=== PATIENT | male | born 1950 | race Two or more races ===

== ENCOUNTER 2020-07-30 04:12 | Inpatient (IN) | payer MEDICARE, MEDICAID ==
[~2020-07-30] VITALS: Ht 172.7 cm; Wt 95.0 kg
[~2020-07-30 04:12] MED LIST: APIX5TAB OR; APIX5TAB PO; ASPI-498 OR; GABA300C10 PO; GLIP10TA9 PO; HYDR25TA4 PO; LOSA-69 PO; NIFE1TAB31 PO; SITA100T7 PO
[2020-07-30 05:27] LABS: Basophils # (auto) 0.1 10 ^3/uL (0-0.2); Basophils % (auto) 0.9 % (0.0-2.0); Eosinophils # (auto) 0.7 10 ^3/uL (0-0.8); Eosinophils % (auto) 6.8 % (0.0-7.0); Hematocrit 40.3 % (41.0-53.0); Hemoglobin 13.2 g/dL (13.5-17.5); Lymphocytes # (auto) 3.3 10 ^3/uL (0.4-5.4); Lymphocytes % (auto) 32.4 % (10.0-50.0); Mean Corpuscular Hgb Conc. 32.8 g/dL (32.0-36.0); Mean Corpuscular Volume 91.4 fL (80.0-100.0); Monocytes % (auto) 9.7 % (0.0-12.0); Neutrophils # (auto) 5.2 10 ^3/uL (1.6-8.6); Neutrophils % (auto) 50.2 % (37.0-80.0); Nucleated Red Blood Cells % 0.1 %; Platelet Count (auto) 222 10^3/uL (140-450); Red Blood Cells 4.41 10^6/uL (4.5-5.90); Red Cell Distribution Width 15.1 % (11.8-14.3); White Blood Cell 10.3 10^3/uL (4.4-10.8)
[2020-07-30 05:45] LABS: INR 0.92 (0.9-1.15); Partial Thromboplastin Time 25.1 sec (23.0-31.2)
[2020-07-30 05:48] LABS: Albumin 3.6 g/dL (3.4-5.0); Anion Gap 4 (5-15); Blood Urea Nitrogen 24 mg/dL (7-18); Calcium 9.1 mg/dL (8.5-10.1); Carbon Dioxide 26 mmol/L (21-32); Chloride 107 mmol/L (98-107); Glucose 201 mg/dL (74-106); Potassium 3.8 mmol/L (3.5-5.1); Sodium 137 mmol/L (136-145)
[2020-07-30 05:58] LABS: Alanine Aminotransferase 26 U/L (16-61); Alkaline Phosphatase 157 U/L (45-117); Aspartate Aminotransferase 21 U/L (15-37); BUN/Creatinine Ratio 18.9; Bilirubin, Total 0.4 mg/dL (0.2-1.0); GFR African American 73 mL/min; GFR Non-African American 60 mL/min; Total Protein 7.9 g/dL (6.4-8.2)
[2020-07-30 10:10] LABS: Urine Bacteria FEW /hpf (None Seen); Urine Blood Negative /uL (Negative); Urine WBC 41 /hpf (0 - 3)
[2020-07-30] MEDS ORDERED: ACETAMINOPHEN 325 MG TAB PO PRN (10:30)
[2020-07-30 13:00] VITALS: BP 148/98
--- NOTE | 2020-07-30 13:00 | NUR ---
Telemetry admit from ER LETTYCARLOS admitted to Telemetry unit after SBAR received. Patient oriented to Sherice posadas RN, unit, room, bed, and unit policies regarding patient care and visiting hours. Patient now on continuous telemetry monitoring, tele box # 75 and telemetry reading on arrival to unit is 85. Patient is on room air, weighed by bedscale and encouraged to call if they need something. All questions and concerns addressed with meat dresser (RN), patient verbalized understanding.
--- NOTE | 2020-07-30 14:30 | NUR ---
Spoke to patient and daughter, Marilyn regarding patient's home medication. Per daughter, he gave list of medication in ER. However, no list of medication when admitted to unit. Patient and family unable to confirm home medications at this time.
[2020-07-30 17:00] VITALS: BP 147/86
--- NOTE | 2020-07-30 17:12 | NUR ---
gave tylenol for 5/10 headache. will continue to monitor for changes.
--- NOTE | 2020-07-30 17:40 | NUR ---
assessed blood glucose, no coverage required for 105mg/dL
[2020-07-30] MEDS: GABAPENTIN 300 MG CAP PO SCH ×2 (18:06→21:54)
--- NOTE | 2020-07-30 19:20 | NUR ---
RECEIVED PATIENT FROM DAY SHIFT RN. PATIENT RESTING IN BED. NO S/S OF DISTRESS NOTED. STATED HEADACHE IS BETTER NOW AFTER PAIN MEDICATION GIVEN EARLIER. REINFORCED SCHEDULE OF PAIN MANAGEMENT. WILL COME BACK FOR PAIN MEDICATION LATER WHEN THE TIME IS DUE AND PER PATIENT REQUESTS. LEFT EYE LIP DROPPING NOTED, WELL LEFT SIDE OF BODY WEAKNESS. POC INSTRUCTED AND ENCOURAGED PATIENT TO CALL FOR DEPARTMENT CLINICIAN IF NEEDED. BED IN LOWEST POSITION WITH SIDE RAILS UP X 2. CALL [facility] WITHIN REACH. ALARM ON. CONTINUE TO MONITOR FOR CHANGES Q1H AND PRN.
[2020-07-30] MEDS ORDERED: DEXTROSE (50%) 50ML SYRG IV PRN (19:45)
[2020-07-30] MEDS ORDERED: LORazepam 2MG/ML-1ML VIAL IV PRN (21:45)
[2020-07-30] MEDS: LOSARTAN POTASSIUM 50 MG TAB PO SCH (21:53)
[2020-07-30] MEDS: HCTZ 25 MG TAB PO SCH (21:53)
[2020-07-30] MEDS: ATORVASTATIN 20 MG TAB PO SCH (21:54)
[2020-07-30] MEDS: ACCU-CHEK COMFORT CURVE STRIP VI SCH (21:54)
[2020-07-30] MEDS: InsuLIN REG 1unit/0.01ml Soln (100units/ml) SC SCH (21:54)
[2020-07-30 22:00] VITALS: BP 154/84
[2020-07-30] MEDS ORDERED: APIXABAN 5 MG TAB PO SCH ×2 (22:00)
--- NOTE | 2020-07-30 22:00 | NUR ---
ORAL MEDICATIONS GIVEN ORDERED. PATIENT SWALLOWED WELL. NO S/S OF ASPIRATION NOTED. ACCU-CHECK, BS 127. NO COVERAGE. CONTINUE TO MONITOR.
--- NOTE | 2020-07-30 23:10 | NUR ---
PATIENT ON CPAP NOW. CONTINUE TO MONITOR.
[2020-07-31 02:54] VITALS: BP 154/84
--- NOTE | 2020-07-31 03:23 | NUR ---
PATIENT SLEEPING WITH CPAP ON, O2 SAT 95%. NO S/S OF DISTRESS NOTED. CONTINUE TO MONITOR.
[2020-07-31 05:00] VITALS: BP 157/69
[2020-07-31] MEDS: ACCU-CHEK COMFORT CURVE STRIP VI SCH ×4 (06:25→22:00)
[2020-07-31] MEDS: GABAPENTIN 300 MG CAP PO SCH ×4 (06:25→22:00)
[2020-07-31] MEDS: InsuLIN REG 1unit/0.01ml Soln (100units/ml) SC SCH ×4 (06:28→22:01)
--- NOTE | 2020-07-31 06:35 | NUR ---
ACCU-CHECK, BS 134. INSULIN GIVEN ORDERED. CONTINUE TO MONITOR.
[2020-07-31 07:44] LABS: Cholesterol 121 mg/dL (< 200)
[2020-07-31 07:47] LABS: HDL Cholesterol 42 mg/dL (40-59); LDL Cholesterol 67 mg/dL (< 100); Triglycerides 108 mg/dL (< 150)
[2020-07-31 09:00] VITALS: BP 137/80
[2020-07-31] MEDS ORDERED: ASPirin 81 mg TAB PO SCH (10:00)
[2020-07-31] MEDS: HCTZ 25 MG TAB PO SCH ×2 (10:15→22:04)
[2020-07-31] MEDS: ASPirin-EC 81 mg tab PO SCH (10:16)
[2020-07-31] MEDS: LOSARTAN POTASSIUM 50 MG TAB PO SCH ×2 (10:16→22:00)
[2020-07-31] MEDS: NIFEdipine ER 30 MG TAB PO SCH (10:17)
--- NOTE | 2020-07-31 11:00 | NUR ---
PT RECEIVING TEST. ATTEMPT P.T.LATER.
[2020-07-31 13:00] VITALS: BP 131/82
[2020-07-31 17:00] VITALS: BP 137/90
[2020-07-31 22:00] VITALS: BP 143/95
[2020-07-31] MEDS: ATORVASTATIN 20 MG TAB PO SCH (22:00)
[2020-08-01 04:41] VITALS: BP 144/87
[2020-08-01] MEDS: ACCU-CHEK COMFORT CURVE STRIP VI SCH ×2 (06:20→12:25)
[2020-08-01] MEDS: GABAPENTIN 300 MG CAP PO SCH ×2 (06:20→12:24)
[2020-08-01] MEDS: InsuLIN REG 1unit/0.01ml Soln (100units/ml) SC SCH ×2 (06:25→12:32)
--- NOTE | 2020-08-01 06:52 | NUR ---
Respiratory note: PATIENT FOUND OFF CPAP AND ON ROOM AIR WITH SPO2 AT 97%. UNKNOWN WHAT TIME PATIENT WAS TAKEN OFF CPAP.
[2020-08-01 08:00] VITALS: BP 154/84
--- NOTE | 2020-08-01 08:00 | NUR ---
Patient resting comfortably in bed; talking on phone. Patient stable at this time.
[2020-08-01 08:38] VITALS: BP_SYST 143; BP_SYST 154; BP_DIAS 84; BP_DIAS 95
[2020-08-01 09:00] VITALS: BP 130/83
[2020-08-01] MEDS: ASPirin-EC 81 mg tab PO SCH (09:41)
[2020-08-01] MEDS: NIFEdipine ER 30 MG TAB PO SCH (09:41)
[2020-08-01] MEDS: HCTZ 25 MG TAB PO SCH (09:42)
[2020-08-01] MEDS: LOSARTAN POTASSIUM 50 MG TAB PO SCH (09:42)
--- NOTE | 2020-08-01 09:43 | NUR ---
Scheduled medications given per order. Patient resting comfortably in bed; denies any pain. Patient stable.
--- NOTE | 2020-08-01 09:55 | NUR ---
Patient ambulating in room with walker and PT assist.
--- NOTE | 2020-08-01 12:25 | NUR ---
Checked blood sugar: 239 mg/dl - will cover per sliding scale. Scheduled po medication given as well. Patient resting comfortably in bed with no distress noted. Patient stable. Addendum: 08/01/20 at 1234 by OMI AYALA RN RN Covered per sliding scale.
[2020-08-01 13:00] VITALS: BP 146/109
--- NOTE | 2020-08-01 13:10 | NUR ---
Patient assisted to bathroom and back to bed. Patient stable.
--- NOTE | 2020-08-01 13:50 | NUR ---
Patient stable with tech at bedside to start EEG.
--- NOTE | 2020-08-01 15:20 | NUR ---
Patient resting comfortably in bed with no respiratory distress noted. Patient stable.
--- NOTE | 2020-08-01 15:32 | NUR ---
assessment Patient is a 69 year old male who is not answering his phone. Per patients daughter Awilda prior to admission patient lived home with her and family and needed assistance. Patient has a fww for home use. Patients PCP is Dr yS. Awilda is patients [facility] caregiver. I informed Awilda of patients ss consult for home health PT. Per Awilda she has no preference on who provides service. MD order has been sent to [facility]. Per Jayden service will start within 48 hours. Awilda has been notified. awilda verbalized understanding and agreed to discharge plan home. Addendum: 08/01/20 at 1542 by Kendal VELASQUEZ Amended: Links added.
--- NOTE | 2020-08-01 16:35 | NUR ---
Discharge instructions Both written and verbal discharge instructions given to patient. Patient verbalized understanding of instructions. All belongings with patient. Patient sitting on side of bed; stable.
[2020-08-01 17:00] VITALS: BP 124/88
--- NOTE | 2020-08-01 17:30 | NUR ---
Discharge Peripheral IV removed intact with no active bleeding; site covered with gauze. Patient discharge to home in stable condition. Home Health visit should be within 48 hours.
== END 2020-08-01 17:30 | disposition home health service (06) | DRG 45 ==
LOC: ER 04:12 → TELE 04:13 → TELE-WESTW 13:00
PROVIDERS: ADMIT Psychiatry & Neurology Neurology; ATTEND Psychiatry & Neurology Neurology
DX: I63.9 Cerebral infarction, unspecified (principal); R56.9 Unspecified convulsions; I10 Essential (primary) hypertension; H51.0 Palsy (spasm) of conjugate gaze; G47.30 Sleep apnea, unspecified; K21.9 Gastro-esophageal reflux disease without esophagitis; I25.10 Atherosclerotic heart disease of native coronary artery without angina pectoris; B19.20 Unspecified viral hepatitis C without hepatic coma; G81.94 Hemiplegia, unspecified affecting left nondominant side; E11.40 Type 2 diabetes mellitus with diabetic neuropathy, unspecified; J32.4 Chronic pansinusitis; Z79.01 Long term (current) use of anticoagulants; Z87.891 Personal history of nicotine dependence; Z95.5 Presence of coronary angioplasty implant and graft; Z79.02 Long term (current) use of antithrombotics/antiplatelets; Z79.82 Long term (current) use of aspirin; Z79.84 Long term (current) use of oral hypoglycemic drugs; Z79.899 Other long term (current) drug therapy; Z82.49 Family history of ischemic heart disease and other diseases of the circulatory system; Z83.3 Family history of diabetes mellitus
CPT/HCPCS: 36415; 70450; 70551; 71045; 80053; 80061; 81001; 82962; 83880; 84484; 85025; 85610; 85730; 93005; 93306; 93886; 94660; 95819; G0378; J1815

== ENCOUNTER 2022-06-09 07:49 | Inpatient (IN) | payer MEDICARE, MEDICAID ==
[~2022-06-09] VITALS: Ht 167.6 cm; Wt 98.9 kg
[2022-06-09] MEDS ORDERED: ASPirin 81 mg TAB PO ONE (08:00)
[2022-06-09 08:22] LABS: Basophils # (auto) 0.1 10 ^3/uL (0-0.2); Basophils % (auto) 0.9 % (0.0-2.0); Eosinophils # (auto) 1.2 10 ^3/uL (0-0.8); Eosinophils % (auto) 12.2 % (0.0-7.0); Hemoglobin 12.6 g/dL (13.5-17.5); Lymphocytes # (auto) 2.6 10 ^3/uL (0.4-5.4); Lymphocytes % (auto) 25.7 % (10.0-50.0); Mean Corpuscular Hemoglobin 30.1 pg (28.0-32.0); Mean Corpuscular Hgb Conc. 33.2 g/dL (32.0-36.0); Mean Corpuscular Volume 90.4 fL (80.0-100.0); Monocytes # (auto) 0.8 10 ^3/uL (0-1.3); Monocytes % (auto) 8.2 % (0.0-12.0); Neutrophils # (auto) 5.4 10 ^3/uL (1.6-8.6); Nucleated Red Blood Cells % 0.1 %; Red Cell Distribution Width 14.2 % (11.8-14.3); White Blood Cell 10.2 10^3/uL (4.4-10.8)
[2022-06-09 08:29] LABS: Albumin 3.5 g/dL (3.4-5.0); Calcium 8.6 mg/dL (8.5-10.1); Potassium 3.8 mmol/L (3.5-5.1)
[2022-06-09 08:32] LABS: BUN/Creatinine Ratio 16.2; Bilirubin, Total 0.4 mg/dL (0.2-1.0); Total Protein 7.4 g/dL (6.4-8.2)
[2022-06-09] MEDS ORDERED: MORPHINE SULFATE INJ 2 MG/ml SYRG IV PRN ×2 (11:45→13:15)
[2022-06-09] MEDS ORDERED: DEXTROSE (50%) 50ML SYRG IV PRN (11:45)
[2022-06-09] MEDS ORDERED: NITROGLYCERIN 0.4 MG SL TAB SL PRN (11:45)
[2022-06-09] MEDS: SODIUM CHLORIDE 0.9% 1,000 ML IV SCH (12:06)
[2022-06-09 12:52] LABS: Cholesterol 104 mg/dL (< 200); HDL Cholesterol 39 mg/dL (40-59); LDL Cholesterol 52 mg/dL (< 100); Triglycerides 147 mg/dL (< 150)
[2022-06-09] MEDS ORDERED: KETOROLAC TROMETH 30 MG/ML 1ML VIAL IV PRN (13:15)
[2022-06-09] MEDS: InsuLIN REG 1unit/0.01ml Soln (100units/ml) SC SCH ×2 (17:00→22:12)
[2022-06-09] MEDS: ACCU-CHEK COMFORT CURVE STRIP VI SCH ×2 (18:16→22:09)
[2022-06-09 19:06] VITALS: BP 134/73
[2022-06-09] MEDS ORDERED: OMEP20TA PO (19:58)
[2022-06-09] MEDS ORDERED: FINA5TAB4 PO (19:58)
[2022-06-09] MEDS ORDERED: TICA90TA PO (19:58)
[2022-06-09] MEDS ORDERED: FERR325T20 PO (19:58)
[2022-06-09] MEDS ORDERED: TAMS0.4C36 PO (19:58)
[2022-06-09] MEDS ORDERED: ATOR20TA PO (19:58)
[2022-06-09] MEDS ORDERED: CANA300T OR (19:58)
[2022-06-09] MEDS ORDERED: FINE10TA PO (19:58)
[2022-06-09] MEDS ORDERED: METO-158 PO (19:58)
[2022-06-09 22:00] VITALS: BP 134/73
[2022-06-09 22:28] LABS: Urine Bacteria NONE SEEN /hpf (None Seen); Urine Blood Negative /uL (Negative); Urine Specific Gravity 1.016 (1.001-1.035); Urine WBC <1 /hpf (0 - 3)
[2022-06-10] MEDS: SODIUM CHLORIDE 0.9% 1,000 ML IV SCH (04:25)
[2022-06-10 04:59] LABS: Basophils # (auto) 0.1 10 ^3/uL (0-0.2); Basophils % (auto) 0.6 % (0.0-2.0); Eosinophils # (auto) 1.1 10 ^3/uL (0-0.8); Eosinophils % (auto) 10.3 % (0.0-7.0); Hematocrit 38.6 % (41.0-53.0); Hemoglobin 12.7 g/dL (13.5-17.5); Lymphocytes # (auto) 2.5 10 ^3/uL (0.4-5.4); Lymphocytes % (auto) 22.5 % (10.0-50.0); Mean Corpuscular Hemoglobin 29.9 pg (28.0-32.0); Mean Corpuscular Volume 90.6 fL (80.0-100.0); Monocytes % (auto) 9.2 % (0.0-12.0); Neutrophils # (auto) 6.3 10 ^3/uL (1.6-8.6); Neutrophils % (auto) 57.4 % (37.0-80.0); Nucleated Red Blood Cells % 0.1 %; Red Blood Cells 4.25 10^6/uL (4.5-5.90); Red Cell Distribution Width 14.2 % (11.8-14.3)
[2022-06-10 05:00] VITALS: BP 143/72
[2022-06-10 05:17] LABS: Albumin 3.4 g/dL (3.4-5.0); BUN/Creatinine Ratio 17.3; Calcium 8.7 mg/dL (8.5-10.1); Potassium 3.9 mmol/L (3.5-5.1)
[2022-06-10 05:20] LABS: Bilirubin, Total 0.4 mg/dL (0.2-1.0); Total Protein 7.2 g/dL (6.4-8.2)
[2022-06-10] MEDS: ACCU-CHEK COMFORT CURVE STRIP VI SCH ×4 (06:31→22:50)
[2022-06-10] MEDS: InsuLIN REG 1unit/0.01ml Soln (100units/ml) SC SCH ×4 (06:31→22:00)
[2022-06-10 08:10] VITALS: BP 136/74
[2022-06-10] MEDS: ENOXAPARIN SOD 40 MG/0.4 ML SYRINGE SC SCH ×2 (09:59→10:38)
[2022-06-10] MEDS ORDERED: METOPROLOL TARTRATE 50 MG TAB PO ONE ×2 (11:15→11:30)
[2022-06-10 12:00] VITALS: BP 155/84
[2022-06-10 17:00] VITALS: BP 136/70
[2022-06-10 22:19] VITALS: BP 160/75
[2022-06-10 23:18] VITALS: BP 150/75
[2022-06-11 05:12] VITALS: BP 156/77
[2022-06-11 05:40] LABS: Anion Gap 10 (5-15); BUN/Creatinine Ratio 12.6; Blood Urea Nitrogen 14 mg/dL (7-18); Calcium 8.6 mg/dL (8.5-10.1); Carbon Dioxide 19 mmol/L (21-32); Chloride 112 mmol/L (98-107); GFR African American 84 mL/min; GFR Non-African American 70 mL/min; Glucose 121 mg/dL (74-106); Sodium 141 mmol/L (136-145)
[2022-06-11] MEDS: InsuLIN REG 1unit/0.01ml Soln (100units/ml) SC SCH ×2 (07:00→11:35)
[2022-06-11] MEDS: ACCU-CHEK COMFORT CURVE STRIP VI SCH ×2 (07:01→11:30)
[2022-06-11 08:57] VITALS: BP 140/81
[2022-06-11 13:28] VITALS: BP 123/66
== END 2022-06-11 16:30 | disposition home or self-care (01) | DRG 311 ==
LOC: ER 07:49 → EDUNIT# 07:49 → TELE 11:43 → TELE-WESTW 17:52
PROVIDERS: ADMIT Internal Medicine; ATTEND Internal Medicine
DX: I20.0 Unstable angina (principal); N17.0 Acute kidney failure with tubular necrosis; E11.9 Type 2 diabetes mellitus without complications; E66.01 Morbid (severe) obesity due to excess calories; Z20.822 Contact with and (suspected) exposure to COVID-19; I10 Essential (primary) hypertension; Z82.49 Family history of ischemic heart disease and other diseases of the circulatory system; Z86.73 Personal history of transient ischemic attack (TIA), and cerebral infarction without residual deficits; Z83.3 Family history of diabetes mellitus; Z90.49 Acquired absence of other specified parts of digestive tract; Z68.35 Body mass index [BMI] 35.0-35.9, adult; Z79.84 Long term (current) use of oral hypoglycemic drugs
CPT/HCPCS: 36415; 71045; 71250; 80048; 80053; 80061; 81001; 82962; 83036; 83735; 83880; 84443; 84484; 85025; 93005; 93306; 96374; 99291; G0378; J1815; J1885

== ENCOUNTER 2022-09-21 18:34 | Inpatient (IN) | payer MEDICARE, MEDICAID ==
[~2022-09-21] VITALS: Ht 172.7 cm; Wt 96.0 kg
[~2022-09-21 18:34] MED LIST changes: +ATOR20TA PO; +CANA300T OR; +FERR325T20 PO; +FINA5TAB4 PO; +FINE10TA PO; +METO-158 PO; +OMEP20TA PO; +TAMS0.4C36 PO; +TICA90TA PO
[2022-09-21] MEDS ORDERED: SODIUM CHLORIDE 0.9% 1,000 ML IV ONE ×2 (18:45→21:15)
[2022-09-21] MEDS ORDERED: PIPERACILLIN-TAZOB 3.375GM 100 ML IV ONE (19:30)
[2022-09-21 19:50] LABS: Basophils # (auto) 0 10 ^3/uL (0-0.2); Basophils % (auto) 0.2 % (0.0-2.0); Eosinophils # (auto) 0.4 10 ^3/uL (0-0.8); Eosinophils % (auto) 3.1 % (0.0-7.0); Hematocrit 44.3 % (41.0-53.0); Hemoglobin 14.9 g/dL (13.5-17.5); Lymphocytes # (auto) 1.8 10 ^3/uL (0.4-5.4); Lymphocytes % (auto) 14.7 % (10.0-50.0); Mean Corpuscular Hemoglobin 30.5 pg (28.0-32.0); Mean Corpuscular Hgb Conc. 33.6 g/dL (32.0-36.0); Mean Corpuscular Volume 90.6 fL (80.0-100.0); Monocytes % (auto) 8.1 % (0.0-12.0); Neutrophils # (auto) 9.2 10 ^3/uL (1.6-8.6); Neutrophils % (auto) 73.9 % (37.0-80.0); Nucleated Red Blood Cells % 0.1 %; Red Blood Cells 4.89 10^6/uL (4.5-5.90); Red Cell Distribution Width 14.3 % (11.8-14.3); White Blood Cell 12.4 10^3/uL (4.4-10.8)
[2022-09-21 20:00] LABS: Albumin 3.9 g/dL (3.4-5.0); BUN/Creatinine Ratio 14.2; Calcium 9.1 mg/dL (8.5-10.1); Potassium 4.6 mmol/L (3.5-5.1)
[2022-09-21 20:03] LABS: Bilirubin, Total 0.5 mg/dL (0.2-1.0); Total Protein 8.2 g/dL (6.4-8.2)
[2022-09-21] MEDS ORDERED: SODIUM CHLORIDE 0.9% 1,000 ML IVB ONE (21:15)
[2022-09-21] MEDS ORDERED: metroNIDAZOLE 500MG/100ML 100 ML IV ONE (22:30)
[2022-09-21] MEDS ORDERED: DEXTROSE (50%) 50ML SYRG IV PRN (22:30)
[2022-09-21] MEDS ORDERED: HYDROcodone-ACET 5/325MG TAB PO PRN (22:30)
[2022-09-21] MEDS ORDERED: ACETAMINOPHEN 325 MG TAB PO PRN (22:30)
[2022-09-21] MEDS: MORPHINE SULFATE INJ 2 MG/ml SYRG IV PRN (22:51)
[2022-09-21] MEDS: ONDANSETRON HCL 4 MG/2 ML VIAL IV PRN (22:51)
[2022-09-21] MEDS ORDERED: NITROGLYCERIN 0.4 MG SL TAB SL PRN (23:15)
[2022-09-21] MEDS ORDERED: MORPHINE SULFATE INJ 2 MG/ml SYRG IV PRN (23:15)
[2022-09-22] MEDS: ACCU-CHEK COMFORT CURVE STRIP VI SCH ×5 (01:08→23:14)
[2022-09-22] MEDS: InsuLIN REG 1unit/0.01ml Soln (100units/ml) SC SCH ×5 (01:14→23:14)
[2022-09-22] MEDS: ONDANSETRON HCL 4 MG/2 ML VIAL IV PRN ×4 (03:29→22:07)
[2022-09-22] MEDS: MORPHINE SULFATE INJ 2 MG/ml SYRG IV PRN ×4 (03:30→22:12)
[2022-09-22 05:04] LABS: Basophils # (auto) 0 10 ^3/uL (0-0.2); Basophils % (auto) 0.3 % (0.0-2.0); Eosinophils # (auto) 0.1 10 ^3/uL (0-0.8); Eosinophils % (auto) 1.1 % (0.0-7.0); Hematocrit 40.6 % (41.0-53.0); Hemoglobin 13.5 g/dL (13.5-17.5); Lymphocytes # (auto) 1.6 10 ^3/uL (0.4-5.4); Lymphocytes % (auto) 12.3 % (10.0-50.0); Mean Corpuscular Hemoglobin 30.5 pg (28.0-32.0); Mean Corpuscular Hgb Conc. 33.3 g/dL (32.0-36.0); Mean Corpuscular Volume 91.6 fL (80.0-100.0); Monocytes % (auto) 7.8 % (0.0-12.0); Neutrophils # (auto) 9.9 10 ^3/uL (1.6-8.6); Neutrophils % (auto) 78.5 % (37.0-80.0); Red Blood Cells 4.44 10^6/uL (4.5-5.90); Red Cell Distribution Width 14.5 % (11.8-14.3); White Blood Cell 12.6 10^3/uL (4.4-10.8)
[2022-09-22 05:21] LABS: Albumin 3.8 g/dL (3.4-5.0); Calcium 8.6 mg/dL (8.5-10.1); Potassium 4.7 mmol/L (3.5-5.1)
[2022-09-22 05:24] LABS: BUN/Creatinine Ratio 18.1
[2022-09-22 05:27] LABS: Bilirubin, Total 0.6 mg/dL (0.2-1.0); Total Protein 7.7 g/dL (6.4-8.2)
[2022-09-22] MEDS: metroNIDAZOLE 500MG/100ML 100 ML IV SCH ×3 (06:09→22:07)
[2022-09-22] MEDS: FAMOTIDINE (10MG/ML) 2ML VL IV SCH ×2 (09:10→22:12)
[2022-09-22] MEDS ORDERED: HEPARIN SODIUM (PORCINE) 5000 UNITS/ML 1ML VIAL SC SCH (10:00)
[2022-09-22] MEDS ORDERED: cefTRIAXone 1GM/50ML D5W 50 ML IV ONE (11:30)
[2022-09-22] MEDS: D5W/SOD CHLO 0.9% 1,000 ML IV SCH (17:15)
[2022-09-22 20:46] VITALS: BP 136/72
[2022-09-22 21:04] VITALS: BP 136/72
[2022-09-22 22:00] VITALS: BP 136/72
[2022-09-22 22:11] LABS: Urine Bacteria NONE SEEN /hpf (None Seen); Urine Blood Negative /uL (Negative); Urine Specific Gravity 1.025 (1.001-1.035); Urine WBC <1 /hpf (0 - 3)
[2022-09-22] MEDS ORDERED: NIFE90TA49 PO (23:42)
[2022-09-22] MEDS ORDERED: METO-289 PO (23:45)
[2022-09-22] MEDS ORDERED: NIFE1TAB30 PO (23:47)
[2022-09-23] MEDS: D5W/SOD CHLO 0.9% 1,000 ML IV SCH ×4 (04:08→22:20)
[2022-09-23 05:00] VITALS: BP 135/66
[2022-09-23] MEDS: ACCU-CHEK COMFORT CURVE STRIP VI SCH ×4 (05:17→23:28)
[2022-09-23] MEDS: metroNIDAZOLE 500MG/100ML 100 ML IV SCH ×3 (05:17→22:02)
[2022-09-23] MEDS: InsuLIN REG 1unit/0.01ml Soln (100units/ml) SC SCH ×4 (05:17→23:28)
[2022-09-23 08:00] VITALS: BP 131/74
[2022-09-23] MEDS ORDERED: GASTROGRAFIN 120 ML SOL ONE (08:49)
[2022-09-23 09:00] VITALS: BP 131/74
[2022-09-23] MEDS: FAMOTIDINE (10MG/ML) 2ML VL IV SCH ×2 (10:37→22:02)
[2022-09-23] MEDS: cefTRIAXone 1GM/50ML D5W 50 ML IV SCH (10:37)
[2022-09-23] MEDS: MORPHINE SULFATE INJ 2 MG/ml SYRG IV PRN (10:43)
[2022-09-23 13:00] VITALS: BP 154/87
[2022-09-23] MEDS ORDERED: LOPERAMIDE HCL 2 MG CAP/TAB PO ONE (13:15)
[2022-09-23 17:00] VITALS: BP 133/66
[2022-09-23 22:00] VITALS: BP 150/75
[2022-09-23] MEDS: LOPERAMIDE HCL 2 MG CAP/TAB PO PRN (22:02)
[2022-09-24 05:00] VITALS: BP 155/75
[2022-09-24] MEDS: InsuLIN REG 1unit/0.01ml Soln (100units/ml) SC SCH ×3 (05:44→17:55)
[2022-09-24] MEDS: ACCU-CHEK COMFORT CURVE STRIP VI SCH ×3 (05:44→17:56)
[2022-09-24] MEDS: metroNIDAZOLE 500MG/100ML 100 ML IV SCH ×3 (05:45→21:50)
[2022-09-24 08:00] VITALS: BP 145/74
[2022-09-24 09:00] VITALS: BP 145/74
[2022-09-24] MEDS: FAMOTIDINE (10MG/ML) 2ML VL IV SCH (09:30)
[2022-09-24] MEDS: ONDANSETRON HCL 4 MG/2 ML VIAL IV PRN ×2 (09:31→21:50)
[2022-09-24] MEDS: cefTRIAXone 1GM/50ML D5W 50 ML IV SCH (09:31)
[2022-09-24] MEDS: D5W/SOD CHLO 0.9% 1,000 ML IV SCH ×2 (11:34→17:36)
[2022-09-24 13:00] VITALS: BP 130/59
[2022-09-24 16:45] VITALS: BP 113/56
[2022-09-24] MEDS: LOPERAMIDE HCL 2 MG CAP/TAB PO PRN (20:43)
[2022-09-24] MEDS: MORPHINE SULFATE INJ 2 MG/ml SYRG IV PRN (20:56)
[2022-09-24 22:00] VITALS: BP 174/76
[2022-09-25] MEDS: ACCU-CHEK COMFORT CURVE STRIP VI SCH ×4 (00:05→17:35)
[2022-09-25] MEDS ORDERED: hydrALAZINE HCL 20 MG/ML VL IV ONE (01:00)
[2022-09-25] MEDS: D5W/SOD CHLO 0.9% 1,000 ML IV SCH ×3 (01:15→17:30)
[2022-09-25 05:00] VITALS: BP 156/73
[2022-09-25] MEDS: metroNIDAZOLE 500MG/100ML 100 ML IV SCH ×3 (06:24→22:42)
[2022-09-25] MEDS: InsuLIN REG 1unit/0.01ml Soln (100units/ml) SC SCH ×4 (06:29→17:35)
[2022-09-25] MEDS: ONDANSETRON HCL 4 MG/2 ML VIAL IV PRN ×3 (06:29→22:44)
[2022-09-25 08:30] VITALS: BP 160/80
[2022-09-25 09:00] VITALS: BP 160/80
[2022-09-25] MEDS: cefTRIAXone 1GM/50ML D5W 50 ML IV SCH (09:16)
[2022-09-25] MEDS: LOPERAMIDE HCL 2 MG CAP/TAB PO PRN (12:37)
[2022-09-25 13:00] VITALS: BP 141/49
[2022-09-25] MEDS ORDERED: LOSARTAN POTASSIUM 50 MG TAB PO ONE (14:15)
[2022-09-25] MEDS ORDERED: PANTOPRAZOLE 40 MG TAB PO ONE (14:15)
[2022-09-25] MEDS ORDERED: FINASTERIDE 5 MG TAB PO ONE (14:15)
[2022-09-25 16:38] VITALS: BP 169/75
[2022-09-25] MEDS ORDERED: TAMSULOSIN HYDROCHLORIDE 0.4 MG CAP PO SCH (18:00)
[2022-09-25 22:00] VITALS: BP 163/73
[2022-09-26] MEDS: ACCU-CHEK COMFORT CURVE STRIP VI SCH ×3 (00:16→12:48)
[2022-09-26] MEDS: D5W/SOD CHLO 0.9% 1,000 ML IV SCH (03:46)
[2022-09-26 05:00] VITALS: BP 151/61
[2022-09-26] MEDS: InsuLIN REG 1unit/0.01ml Soln (100units/ml) SC SCH ×3 (06:15→12:49)
[2022-09-26] MEDS: ONDANSETRON HCL 4 MG/2 ML VIAL IV PRN (06:15)
[2022-09-26] MEDS: metroNIDAZOLE 500MG/100ML 100 ML IV SCH (06:15)
[2022-09-26 07:08] LABS: BUN/Creatinine Ratio 5.6; Calcium 8.5 mg/dL (8.5-10.1); Potassium 3.8 mmol/L (3.5-5.1)
[2022-09-26 07:13] LABS: Basophils # (auto) 0 10 ^3/uL (0-0.2); Basophils % (auto) 0.7 % (0.0-2.0); Eosinophils # (auto) 0.5 10 ^3/uL (0-0.8); Eosinophils % (auto) 8.9 % (0.0-7.0); Hematocrit 33.8 % (41.0-53.0); Lymphocytes # (auto) 2.3 10 ^3/uL (0.4-5.4); Lymphocytes % (auto) 39.5 % (10.0-50.0); Mean Corpuscular Hgb Conc. 32.5 g/dL (32.0-36.0); Mean Corpuscular Volume 92.4 fL (80.0-100.0); Monocytes # (auto) 0.7 10 ^3/uL (0-1.3); Monocytes % (auto) 12.3 % (0.0-12.0); Neutrophils # (auto) 2.3 10 ^3/uL (1.6-8.6); Neutrophils % (auto) 38.6 % (37.0-80.0); Red Blood Cells 3.66 10^6/uL (4.5-5.90); Red Cell Distribution Width 14.3 % (11.8-14.3); White Blood Cell 5.8 10^3/uL (4.4-10.8)
[2022-09-26 08:15] VITALS: BP 146/65
[2022-09-26 09:00] VITALS: BP 146/65
[2022-09-26] MEDS: cefTRIAXone 1GM/50ML D5W 50 ML IV SCH (09:17)
[2022-09-26] MEDS ORDERED: LOSARTAN POTASSIUM 50 MG TAB PO SCH (10:00)
[2022-09-26] MEDS ORDERED: FINASTERIDE 5 MG TAB PO SCH (10:00)
[2022-09-26] MEDS ORDERED: PANTOPRAZOLE 40 MG TAB PO SCH (10:00)
[2022-09-26 12:24] VITALS: BP 146/65
== END 2022-09-26 13:08 | disposition home or self-care (01) | DRG 247 ==
LOC: ER 18:34 → OVERFLOW 23:05 → WEST WING 09-22 20:39
PROVIDERS: ADMIT Nurse Practitioner Family; ATTEND Internal Medicine
PROC: 0D9670Z Drainage of Stomach with Drainage Device, Via Natural or Artificial Opening (ICD-10-PCS; principal; 2022-09-22)
DX: K56.600 Partial intestinal obstruction, unspecified as to cause (principal); N17.9 Acute kidney failure, unspecified; E11.22 Type 2 diabetes mellitus with diabetic chronic kidney disease; D72.829 Elevated white blood cell count, unspecified; E66.9 Obesity, unspecified; E86.0 Dehydration; I25.10 Atherosclerotic heart disease of native coronary artery without angina pectoris; N18.30 Chronic kidney disease, stage 3 unspecified; Z20.822 Contact with and (suspected) exposure to COVID-19; I12.9 Hypertensive chronic kidney disease with stage 1 through stage 4 chronic kidney disease, or unspecified chronic kidney disease; Z90.49 Acquired absence of other specified parts of digestive tract; Z87.891 Personal history of nicotine dependence; Z86.73 Personal history of transient ischemic attack (TIA), and cerebral infarction without residual deficits; Z83.3 Family history of diabetes mellitus; Z82.49 Family history of ischemic heart disease and other diseases of the circulatory system; Z68.31 Body mass index [BMI] 31.0-31.9, adult
CPT/HCPCS: 36415; 71045; 74176; 74250; 80048; 80053; 81001; 82962; 83605; 83690; 84484; 85025; 85610; 87040; 87426; 93005; 96361; 96365; 96367; G0378; J0696; J1815; J2405; J2543; J3490; J7042